=== PATIENT | female | born 1995 | race Caucasian/White ===

== ENCOUNTER 2016-09-14 12:03 | Observation (INO) | payer MEDICAID ==
[2016-09-14] MEDS ORDERED: Lactated Ringers 1,000 ML IV ONE (12:52)
[2016-09-14] MEDS ORDERED: Metoclopramide 10 MG/2 ML SDV IVPUSH ONE (12:57)
[2016-09-14 13:04] LABS: CHLORIDE,CL 101 mmol/L (101-111); SODIUM,NA 133 mmol/L (135-145)
[2016-09-14] MEDS ORDERED: Albuterol 6.7 GM Inhaler INH PRN (13:59)
[2016-09-14] MEDS ORDERED: Sodium Chloride 0.9% 1,000 ML IV SCH (14:00)
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
[2016-09-14] MEDS: Sodium Chloride 0.9% 1,000 ML IV SCH ×2 (14:38→22:33)
[2016-09-14] MEDS: methylPREDNISolone Sodium Succinate 125 MG/2 ML SDV IVPUSH SCH ×2 (14:41→22:19)
[2016-09-14] MEDS: Famotidine 20 MG/2 ML SDV IV PRN (14:44)
[2016-09-14] MEDS: Clindamycin Phosphate 900 MG in Sodium Chloride 0.9% 100 ML IV SCH ×2 (14:45→22:25)
[2016-09-14] MEDS: hydrOXYzine HCl 25 MG Tab PO PRN (17:14)
[2016-09-14] MEDS: Budesonide 0.5 MG/2 ML Neb Susp NEB SCH (17:43)
[2016-09-14] MEDS: Acetaminophen 325 MG Tab PO PRN (19:30)
[2016-09-15] MEDS: Acetaminophen 325 MG Tab PO PRN ×3 (01:40→22:44)
[2016-09-15] MEDS: hydrOXYzine HCl 25 MG Tab PO PRN ×2 (01:41→12:04)
[2016-09-15] MEDS: Famotidine 20 MG/2 ML SDV IV PRN (05:38)
[2016-09-15] MEDS: methylPREDNISolone Sodium Succinate 125 MG/2 ML SDV IVPUSH SCH ×2 (05:42→14:44)
[2016-09-15] MEDS: Clindamycin Phosphate 900 MG in Sodium Chloride 0.9% 100 ML IV SCH ×3 (05:45→22:38)
[2016-09-15 07:12] LABS: CHLORIDE,CL 105 mmol/L (101-111); SODIUM,NA 137 mmol/L (135-145)
[2016-09-15] MEDS: Sodium Chloride 0.9% 1,000 ML IV SCH ×2 (07:40→16:18)
[2016-09-15] MEDS ORDERED: Metoclopramide 10 MG Tab PO SCH (11:00)
[2016-09-15] MEDS: Budesonide 0.5 MG/2 ML Neb Susp NEB SCH ×2 (11:57→17:55)
[2016-09-15] MEDS: Morphine 2 MG/ML Syringe IVPUSH PRN ×2 (17:23→23:31)
[2016-09-15] MEDS: Pantoprazole 40 MG in Sodium Chloride 0.9% 100 ML IV SCH ×2 (17:24→22:46)
[2016-09-15] MEDS: Docusate Sodium 100 MG Cap PO PRN (17:25)
[2016-09-15 17:34] LABS: CHLORIDE,CL 106 mmol/L (101-111); SODIUM,NA 138 mmol/L (135-145)
[2016-09-15] MEDS ORDERED: Lidocaine 1% 10 ML MDV INJECT ONE (18:07)
[2016-09-15] MEDS ORDERED: Lidocaine 1% 30 ML SDV INJECT ONE (18:32)
[2016-09-16] MEDS: Sodium Chloride 0.9% 1,000 ML IV SCH (01:20)
[2016-09-16] MEDS: Morphine 2 MG/ML Syringe IVPUSH PRN ×2 (05:31→12:22)
[2016-09-16] MEDS: Pantoprazole 40 MG in Sodium Chloride 0.9% 100 ML IV SCH (05:37)
[2016-09-16] MEDS: Clindamycin Phosphate 900 MG in Sodium Chloride 0.9% 100 ML IV SCH ×2 (06:05→14:00)
[2016-09-16 07:03] LABS: CHLORIDE,CL 104 mmol/L (101-111); SODIUM,NA 134 mmol/L (135-145)
[2016-09-16] MEDS: Budesonide 0.5 MG/2 ML Neb Susp NEB SCH (09:45)
--- NOTE | 2016-09-16 10:20 | HP ---
PATIENT IDENTIFICATION: Sheryl Salinas is a 21-year-old, G2, P0-0-1-0, intrauterine 32 weeks, confirmed by 6 and 09/22 week ultrasound that presents with nausea, vomiting, and abdominal pain. HISTORY OF PRESENT ILLNESS: The patient has been complaining of at least the last week of having upper abdominal pain, described as cramping at times, seems to come on as soon as she eats, and associated with nausea and vomiting. It was waxing and waning until last night when she had some water and then has been more constant, felt in the upper abdominal area. It was severe enough to the point that she was vomiting when she was getting her packing changed today on the hospital floor by nurse. She denies any diarrhea, constipation, change in bowel or bladder habits. She denies any spotting, bleeding, leaking or contractions. She has had good movement. For further history of present illness, past medical, family history, social history, OB history, and review of systems, please see Noa Olivarez's, MS III, notes. These were done fully, and please see her notes for further details. To put this in context, she does have a history of abscesses involving the right chest wall, packing changes were done today, and discussed with nurse. No evidence of worsening infection noted today. She also has asthma and noted to have some wheezing and cough as well as meth use during her . OBJECTIVE: Her vital signs have been stable. She has not been hypertensive. She has been afebrile. For further physical exam findings, please see Noa Menjivars, MS III, notes for further details. She does have some upper abdominal pain without any rebound, rigidity, or guarding. INVESTIGATIONS: Please see Noa Menjivars, MS III, notes. CBC, CMP, UA, urine culture, and urine drug screen have been done. heart tones have been found to be reactive and reassuring. Tocometer reveals no evidence contractions. ASSESSMENT AND PLAN: 1. Intrauterine 32 weeks by a 6 and 09/22 week ultrasound. 2. Upper abdominal pain. 3. Nausea and vomiting. 4. History of abscess involving the right chest wall, packing change done today. No evidence of worsening infection. 5. History of chlamydia during the , treated and negative thereafter. 6. Asthma with minimal wheezing and cough. We will treat today. Please see orders for further details. 7. Meth use during . 8. 2, para 0-0-1-0. 9. Methicillin-resistant staphylococcus aureus growing from her culture. We will start her on clindamycin IV as the p.o. clindamycin may be irritating or cause irritation of her stomach as well. The patient understands and agrees with the above treatment plan. Also, antiemetics will be given. Please see orders for further details. [facility] /[id number]
--- NOTE | 2016-09-16 10:50 | PN ---
DATE: 09/15/2016 SUBJECTIVE: The patient is still complaining of some upper abdominal pain, worse with oral intake. She describes difficulty keeping her eggs down this morning. She states she had a bowel movement yesterday that was within normal limits. OBJECTIVE: Vital Signs: Temperature 97.8, heart rate 64, blood pressure 118/59, respiratory rate 18. Lungs: Clear to auscultation bilaterally. Heart: S1 and S2 are heard. Regular rate and rhythm. Abdomen: Obese, gravid. Beny's indeterminate. With distraction, there is no pain with palpation, but with patient concentrating on palpation of the abdomen/exam, there seems to be some pain in the upper abdominal region. Extremities: Trace pedal edema. No calf pain. LABORATORY DATA: White cell count 20.3, hemoglobin 13.5, platelets 165,000. BMP remarkable for elevated glucose at 125. ASSESSMENT: 1. Intrauterine at 32 and 1/7th weeks. 2. Upper abdominal pain with nausea and vomiting with difficulty keeping down breakfast this morning. We will try to continue with Pepcid that we have been using IV. We will switch over to a p.o. Reglan in an attempt to get her on oral antiemetics to make sure she is stable to go home. 3. Leukocytosis. I suspect this is secondary to the steroids that we have been giving her which has been used for her acute exacerbation of asthma/wheezing, which is noted be resolved today. 4. History of abscesses involving the right chest wall, packing changes. No evidence of increasing infection noted yesterday. 5. Acute exacerbation of asthma with wheezing and coughing-resolved. 6. History of meth use during . 7. 2, Para 0-0-1-0. PLAN: The patient will be followed closely. Labs tomorrow. Try to switch over to oral antiemetic and proceed from there. The patient understands and agrees with the above treatment plan. [facility] /[id number]
--- NOTE | 2016-09-16 10:56 | PN ---
DATE: 09/15/2016 SUBJECTIVE: I was called to evaluate this patient as she was complaining of pain, crying in pain, and was being somewhat uncooperative with staff. The patient relates to me that she has had ongoing abdominal pain that worsened today, and it is actually located right paraspinous region in the thoracic and lumbar area, it is worse with palpation, sometimes with movement, and severe enough that she is crying at times with it. She is unsure if she has passed any flatus. She has not had a bowel movement since she has been at the hospital. She has been treated with Reglan, Pepcid, steroids for her breathing and notes that sometimes these medicines may or may not help and she is asking for something for pain. PAST SURGICAL HISTORY: Remarkable for patient have a cholecystectomy per chart review. MEDICATIONS: Per JUL. OBJECTIVE: Vital Signs: The patient has been afebrile. Heart rate is between 60 and 80 by central exam, respiratory rate is between 16 and 20, last blood pressure 118/59, O2 sat on room air was 96% earlier this morning. Appearance: Female, appears her stated age, seems to be holding still in pain and then sometimes moving around in pain and sitting up, when she lies back, she seems to be able to do this with minimal difficulty. HEENT: Mucous membranes are moist. Lungs: Clear to auscultation bilaterally. Heart: S1 and S2, regular rate and rhythm. Abdomen: Gravid. Soft, nontender, nondistended. Bowel sounds positive. No other organomegaly, pulsatile masses, or obvious hernias. No rebound, rigidity, or guarding. With distraction, the patient's pain is resolved, when listening with the stethoscope all over her abdomen and back region. Asked where patient relates her pain, it is posterior to the posterior axillary line in the paraspinous region between the thoracic and lumbar area. Dressing was dry and intact and lifted and revealed 2 healing wounds with no underlying erythema, fluctuance, or drainage elicited. Pain is worse with palpation. Extremities: No peripheral edema. No calf pain. ASSESSMENT AND PLAN: Intrauterine at 32 weeks with now right-sided flank pain. New diagnosis, questionable prognosis. We will do labs and because of breathing is affected, we will need to consider a chest x-ray for further evaluation and treatment, and as she is requesting something for pain, we will give her something for pain. Please see orders for further details. At current time of dictation, this does not appear to be related to a surgical abdomen as her pain is paraspinous in nature. There is no anterior abdominal pain or abdominal pain with distraction today. No rebound, rigidity or guarding. In addition, her pain is worse with palpation, so I doubt internal pain. We will continue to follow clinically and closely at this time. The patient understands and agrees with the above treatment plan. [facility] /[id number]
[2016-09-16] MEDS: Acetaminophen 325 MG Tab PO PRN (10:59)
--- NOTE | 2016-09-16 11:02 | PN ---
DATE: 09/15/2016 Labs returned. White cell count 22,400 suspect related to steroid use. Hemoglobin 13.8, platelets 176,000. CMP remarkable for glucose minimally elevated at 112, total protein at 6.5, and albumin at 2.7. Urine culture reveals no growth. Chest x-ray, portable, reveals no obvious acute abnormality on the chest. There appears to be some nonspecific gas pattern underneath the right hemidiaphragm within the bowels. The patient did receive a mg of morphine and relates to the med student that pain has improved. We will continue to follow clinically and closely. [facility] /[id number]
[2016-09-16 11:33] VITALS: BP 135/95
--- NOTE | 2016-09-16 11:57 | PCM.DCSUM1 ---
Discharge Summary - Hospital Course Free Text/Narrative:: 21-year-old at 32+ weeks gestation. Was admitted 09/14/16 with right upper quadrant abdominal pain. She was given some albuterol for wheezing. No cause for her pain has been noted. She was also started on Protonix. She had an elevated white count yesterday which was thought to be due to steroids. Throughout her stay patient's exam and history do not seem to coordinate very well. She is also having dressing changes for abscess beneath her right breast. - Discharge Data Discharge Date: 09/16/16 Discharge Disposition: Home, Self-Care 01 Condition: Good - Discharge Diagnosis/Problem(s) (1) Vomiting affecting SNOMED Code(s): 85917449, 279421083 ICD Code: O21.9 - VOMITING OF , UNSPECIFIED Status: Acute Current Visit: Yes (2) Abdominal pain SNOMED Code(s): 28872065 ICD Code: R10.9 - UNSPECIFIED ABDOMINAL PAIN Status: Acute Priority: Medium Current Visit: No (3) Asthma SNOMED Code(s): 335384822 ICD Code: J45.909 - UNSPECIFIED ASTHMA, UNCOMPLICATED Status: Acute Priority: Medium Current Visit: No Qualifiers: Asthma severity: mild intermittent Qualified Code(s): J45.21 - Mild intermittent asthma with (acute) exacerbation - Patient Summary/Data Operative Procedure(s) Performed: None Complications: None Consults: None Labs Pending at D/C: None Recommended Follow-up Testing/Procedures: Right upper quadrant ultrasound Planned Operative Procedure(s) after DC: None Hospital Course: Patient reports that she still has some pain today. However, her white count has decreased significantly. She is eating and not vomiting. She has refused to get out of bed other than to go to the bathroom. - Patient Instructions Diet: Usual Diet as Tolerated ([place] diet) Activity: As Tolerated Driving: May Drive Today Showering/Bathing: May Shower Notify Provider of: Fever - Discharge Plan Prescriptions/Med Rec: Albuterol [IJD: Ventolin HFA] 2 puff INH Q4HR PRN #1 inhaler PRN Reason: Shortness Of Breath Docusate Sodium [Colace] 100 mg PO BID PRN #60 cap PRN Reason: Constipation Home Medications: Home Meds Vits #90/Iron Fum/FA [ Formula] 1 tab PO BID 08/28/16 [History] Acetaminophen 650 mg PO Q6H 09/03/16 [History] Albuterol [IJD: Ventolin HFA] 2 puff INH Q4HR PRN #1 inhaler 09/16/16 [Rx] Docusate Sodium [Colace] 100 mg PO BID PRN #60 cap 09/16/16 [Rx] - Discharge Summary/Plan Comment DC Time >30 min.: No Discharge Summary/Plan Comment: 1. Abdominal pain of uncertain etiology. Patient complains of pain; however, no pain is elicited on examination when patient is distracted by speaking with me. Will plan for outpatient right upper quadrant ultrasound for evaluation. Patient no longer requires hospitalization for management of her pain. 2. Protonix 40 mg daily prescribed. 3. Patient advised to stop clindamycin. 4. Patient started on 100 mg Colace twice daily for constipation. 5. Patient is scheduled to see Dr. Erick Gloria tomorrow in my absence. She will see me on Friday for dressing change. 6. Reasons to return sooner were discussed with the patient, and she voices her understanding. Shante Grubbs MD - General Info Date of Service: 09/16/16 Subjective Update: Patient is now hospital day #2 after being admitted for abdominal pain and vomiting in . Patient has not vomited overnight. She continues to complain of right upper quadrant abdominal pain and states that the only thing that makes this better is the morphine. She has been able to eat small amounts of regular food and is able to drink fluids normally. No fever or chills. Functional Status: Reports: tolerating diet, urinating - Review of Systems General: Reports: No Symptoms HEENT: Reports: no symptoms Pulmonary: Reports: no symptoms Cardiovascular: Reports: No Symptoms Gastrointestinal: Reports: Abdominal pain Genitourinary: Reports: no symptoms Musculoskeletal: Reports: no symptoms Skin: Reports: no symptoms Neurological: Reports: No Symptoms - Patient Data Vitals - Most Recent: Last Vital Signs Temp 36.3 C 09/16/16 11:32 Pulse 68 09/16/16 11:32 Resp 20 09/16/16 11:32 BP 135/95 H 09/16/16 11:32 Pulse Ox 99 09/16/16 11:32 Weight - Most Recent: 116.483 kg I&O - Last 24 hours: Intake & Output 09/15/16 09/16/16 09/16/16 22:59 06:59 14:59 Intake Total 2051 2 Output Total 621 599 Balance 1680 1802 Lab Results - Last 24 hrs: Laboratory Results - last 24 hr 09/15/16 09/15/16 09/15/16 Range/Units 17:05 17:05 19:15 WBC 22.4 H (5.0-10.0) 10^3/uL RBC 4.61 (4.2-5.4) 10^6/uL Hgb 13.8 (12.0-16.0) g/dL Hct 41.1 (37.0-47.0) % MCV 89.2 (80-100) fL MCH 29.9 (27.0-34.0) pg MCHC 33.6 (33.0-35.0) g/dL RDW RDW Coeff of Francisca Plt Count 176 (150-450) 10^3/uL MPV Neutrophils % (Manual) % Lymphocytes % (Manual) % Monocytes % (Manual) % Sodium 138 (135-145) mmol/L Potassium 3.8 (3.6-5.0) mmol/L Chloride 106 (101-111) mmol/L Carbon Dioxide 24.0 (21.0-31.0) mmol/L Anion Gap 11.8 BUN 6 L (7-18) mg/dL Creatinine 0.7 (0.6-1.3) mg/dL Est Cr Clr Drug Dosing 108.86 mL/min Estimated GFR (MDRD) > 60 BUN/Creatinine Ratio 8.57 Glucose 112 H (74-105) mg/dL Calcium 8.6 (8.4-10.2) mg/dl Total Bilirubin 0.3 (0.2-1.0) mg/dL AST 20 (10-42) IU/L ALT 21 (10-60) IU/L Alkaline Phosphatase 102 (42-121) IU/L Total Protein 6.5 L (6.7-8.2) g/dl Albumin 2.7 L (3.2-5.5) g/dl Globulin 3.8 Albumin/Globulin Ratio 0.71 Amylase 74 (28-100) U/L Urine Color Yellow (YELLOW) Urine Appearance Clear (CLEAR) Urine pH 6.0 (5.0-9.0) Ur Specific Doss 1.025 (1.005-1.030) Urine Protein 100 H (NEGATIVE) Urine Glucose (UA) Negative (NEGATIVE) Urine Ketones 40 H (NEGATIVE) Urine Occult Blood Negative (NEGATIVE) Urine Nitrite Negative (NEGATIVE) Urine Bilirubin Negative (NEGATIVE) Urine Urobilinogen 0.2 (0.2-1.0) mg/dL Ur Leukocyte Esterase Negative (NEGATIVE) Urine RBC 0-5 /HPF Urine WBC 0-5 (0-5/HPF) /HPF Ur Epithelial Cells Many H /HPF Urine Bacteria Moderate H (0-FEW/HPF) /HPF Urine Mucus Moderate H /LPF 09/16/16 09/16/16 Range/Units 06:15 06:15 WBC 18.6 H (5.0-10.0) 10^3/uL RBC 4.08 L (4.2-5.4) 10^6/uL Hgb 12.2 (12.0-16.0) g/dL Hct 36.9 L (37.0-47.0) % MCV 90.4 (80-100) fL MCH 29.9 (27.0-34.0) pg MCHC 33.1 (33.0-35.0) g/dL RDW Not Reportable RDW Coeff of Francisca Not Reportable Plt Count 172 (150-450) 10^3/uL MPV Not Reportable Neutrophils % (Manual) 74 % Lymphocytes % (Manual) 21 % Monocytes % (Manual) 5 % Sodium 134 L (135-145) mmol/L Potassium 3.2 L (3.6-5.0) mmol/L Chloride 104 (101-111) mmol/L Carbon Dioxide 23.0 (21.0-31.0) mmol/L Anion Gap 10.2 BUN 7 (7-18) mg/dL Creatinine 0.6 (0.6-1.3) mg/dL Est Cr Clr Drug Dosing 127.00 mL/min Estimated GFR (MDRD) > 60 BUN/Creatinine Ratio 11.66 Glucose 94 (74-105) mg/dL Calcium 8.0 L (8.4-10.2) mg/dl Total Bilirubin 0.4 (0.2-1.0) mg/dL AST 18 (10-42) IU/L ALT 19 (10-60) IU/L Alkaline Phosphatase 85 (42-121) IU/L Total Protein 5.7 L (6.7-8.2) g/dl Albumin 2.3 L (3.2-5.5) g/dl Globulin 3.4 Albumin/Globulin Ratio 0.68 Amylase (28-100) U/L Urine Color (YELLOW) Urine Appearance (CLEAR) Urine pH (5.0-9.0) Ur Specific Doss (1.005-1.030) Urine Protein (NEGATIVE) Urine Glucose (UA) (NEGATIVE) Urine Ketones (NEGATIVE) Urine Occult Blood (NEGATIVE) Urine Nitrite (NEGATIVE) Urine Bilirubin (NEGATIVE) Urine Urobilinogen (0.2-1.0) mg/dL Ur Leukocyte Esterase (NEGATIVE) Urine RBC /HPF Urine WBC (0-5/HPF) /HPF Ur Epithelial Cells /HPF Urine Bacteria (0-FEW/HPF) /HPF Urine Mucus /LPF GENOVEVA Results - Last 24 hrs: Microbiology 09/14/16 14:15 Urine Culture - Final Urine, Clean Catch NO GROWTH AFTER 2 DAYS Med Orders - Current: Current Medications Acetaminophen (Tylenol) 650 mg PO Q6H PRN PRN Reason: mild pain and fever Last Admin: 09/16/16 10:59 Dose: 650 mg Albuterol (Proventil Hfa) 0 gm INH Q4H PRN PRN Reason: Shortness of Breath Budesonide (Pulmicort) 0.5 mg NEB BIDRT YEN Last Admin: 09/16/16 09:45 Dose: 0.5 mg Docusate Sodium (Colace) 100 mg PO BID PRN PRN Reason: constipation Last Admin: 09/15/16 17:25 Dose: 100 mg Hydroxyzine HCl (Atarax) 25 mg PO Q6H PRN PRN Reason: Nausea Last Admin: 09/15/16 12:04 Dose: 25 mg Clindamycin Phosphate 900 mg/ (Sodium Chloride) 106 mls @ 200 mls/hr IV Q8H YEN Last Admin: 09/16/16 06:05 Dose: 200 mls/hr Sodium Chloride (Normal Saline) 1,000 mls @ 125 mls/hr IV ASDIRECTED YEN Last Admin: 09/16/16 01:20 Dose: 125 mls/hr Sodium Chloride (Normal Saline) 1,000 mls @ 500 mls/hr IV .BOLUS YEN Pantoprazole Sodium 40 mg/ (Sodium Chloride) 100 mls @ 20 mls/hr IV .CONTINUOS [facility] Last Admin: 09/16/16 05:37 Dose: 20 mls/hr Lidocaine HCl (Xylocaine-Mpf 1%) 5 ml .XX ONETIME ONE Stop: 09/16/16 12:01 Morphine Sulfate (Morphine) 1 mg IVPUSH Q6HR PRN PRN Reason: Pain Last Admin: 09/16/16 05:31 Dose: 1 mg Discontinued Medications Famotidine (Pepcid) 20 mg IV Q12H PRN PRN Reason: Heartburn Last Admin: 09/15/16 05:38 Dose: 20 mg Lactated Ringer's (Ringers, Lactated) 1,000 mls @ 999 mls/hr IV .BOLUS ONE Stop: 09/14/16 13:52 Last Admin: 09/14/16 13:12 Dose: 999 mls/hr Lidocaine HCl (Xylocaine 1%) 5 ml INJECT ONETIME ONE Stop: 09/15/16 18:08 Last Admin: 09/15/16 19:12 Dose: Not Given Lidocaine HCl (Xylocaine-Mpf 1%) 30 ml INJECT ONETIME ONE Stop: 09/15/16 18:33 Last Admin: 09/15/16 19:12 Dose: 30 ml Methylprednisolone Sodium Succinate (Solu-Medrol) 80 mg IVPUSH Q8H [facility] Last Admin: 09/15/16 14:44 Dose: 80 mg Metoclopramide HCl (Reglan) 5 mg IVPUSH ONETIME ONE Stop: 09/14/16 12:58 Last Admin: 09/14/16 13:35 Dose: 5 mg Metoclopramide HCl (Reglan) 10 mg PO TIDAC [facility] Last Admin: 09/15/16 12:04 Dose: 10 mg - Exam General: Reports: alert, oriented Lungs: Reports: Clear to auscultation, Normal respiratory effort. Denies: Wheezing Cardiovascular: Reports: Regular Rate, Regular Rhythm, No Murmurs Abdomen: Reports: bowel sounds present, soft, no tenderness (Patient distracted during examination and did not complain of pain when I applied pressure during abdominal auscultation). Denies: abnormal bowel sounds Skin: Reports: warm, dry, intact *Q Meaningful Use (DIS) - VTE *Q VTE Criteria *Q: - Stroke *Q Stroke Criteria *Q: - AMI *Q AMI Criteria *Q:
[2016-09-16] MEDS ORDERED: Lidocaine 1% 30 ML SDV ONE (12:00)
--- NOTE | 2016-09-16 12:02 | OBOUT ---
DATE: 09/15/2016 DATE AND TIME OF NST: Date: 09/15/2016. Time: 05:25 to 05:45. REASON FOR NST: 1. Intrauterine at 32 and 1/7th weeks. 2. Upper abdominal pain with nausea and vomiting. Leukocytosis. 3. History of abscess and cellulitis with packing changes. 4. Asthma with wheezing and cough. 5. Meth use during . 6. G2, P0-0-1-0. NST INTERPRETATION: During this time period, heart tone baseline is approximately 145 to 150, and there are at least two 15 x 15 beat per minute accelerations, making this strip reactive. It is also noted to be reassuring. Tocometer reveals no evidence contraction. ASSESSMENT: 1. Non-stress test-reactive and reassuring. 2. Tocometer without contractions. PLAN: Please see other notes from hospital. [facility] /[id number]
--- NOTE | 2016-09-16 12:02 | OBOUT ---
DATE: 09/14/2016 DATE AND TIME OF NST: Date: 09/14/2016. Time: 1250 hours to 1305 hours. REASON FOR NST: 1. Intrauterine at 32 weeks. 2. Upper abdominal pain. 3. Nausea and vomiting. 4. History of abscess involving the right chest wall, packing changes done today. 5. History of chlamydia, treated and negative thereafter. 6. Asthma with mild wheezing and cough today. 7. History of meth use during . 8. G2, P0-0-1-0. NST INTERPRETATION: During this time period, heart tone baseline is approximately 145 to 150, and there are at least two 15 x 15 beat per minute accelerations, making this strip reactive. It is also noted to be reassuring. Tocometer reveals no evidence contraction. ASSESSMENT: 1. Non-stress test-reactive and reassuring. 2. Tocometer without contractions. PLAN: Please see other OB outpatient note for further details. [facility] /[id number]
[2016-09-16] MEDS: Docusate Sodium 100 MG Cap PO PRN (12:20)
== END 2016-09-16 14:35 | disposition home or self-care (01) ==
LOC: DL.OBCHECK 12:03 → DL.MS 13:48
PROVIDERS: ADMIT Family Medicine; ATTEND Family Medicine
DX: O21.2 Late vomiting of pregnancy (principal); O26.893 Other specified pregnancy related conditions, third trimester; J45.21 Mild intermittent asthma with (acute) exacerbation; O99.52 Diseases of the respiratory system complicating childbirth; Z3A.01 Less than 8 weeks gestation of pregnancy; Z37.9 Outcome of delivery, unspecified; Z79.899 Other long term (current) drug therapy; Z88.8 Allergy status to other drugs, medicaments and biological substances; O98.813 Other maternal infectious and parasitic diseases complicating pregnancy, third trimester; Z90.49 Acquired absence of other specified parts of digestive tract; Z98.890 Other specified postprocedural states; A49.02 Methicillin resistant Staphylococcus aureus infection, unspecified site; F17.210 Nicotine dependence, cigarettes, uncomplicated; O99.343 Other mental disorders complicating pregnancy, third trimester; F41.8 Other specified anxiety disorders
CPT/HCPCS: 36415; 59025; 71010; 80048; 80053; 80305; 81001; 82150; 85025; 85027; 87086; 94640; 96361; 96365; 96366; 96375; 96376; A9270; C9113; G0378; J2270; J2765; J2930; J7030; J7050; J7120; 96360; 96372; S0028; S0077

== ENCOUNTER 2017-06-05 17:11 | Emergency (ER) | payer MEDICAID ==
[2017-06-05 17:28] VITALS: BP 109/80
[2017-06-05] MEDS ORDERED: Sodium Chloride 0.9% 10 ML Syringe FLUSH PRN (18:11)
--- NOTE | 2017-06-05 18:22 | EDM.PDOC ---
ED HPI GENERAL MEDICAL PROBLEM - General Chief Complaint: Gastrointestinal Problem Stated Complaint: ABD PAINS,DIZZY/LIGHTHEADED,BLACKOUT,YELLOW FACE, Time Seen by Provider: 06/05/17 18:01 Source of Information: Reports: Patient, RN, RN Notes Reviewed History Limitations: Reports: No Limitations - History of Present Illness INITIAL COMMENTS - FREE TEXT/NARRATIVE: Patient presents with abdominal pain of 3-4 days duration. States she was called by Dr. Grubbs's nurse and told she has kidney problems.She has been on antibiotics for 1 week for vaginal bacterial infection. She has not eaten today. No vomiting. Ate last night and vomited. She is very sleepy.States she cannot pee.She has chills, diarrhea at times, nausea and vomiting, lightheadedness,dizziness, falls in shower,unsteady and blacking out frequently. She has no fevers. Living at [facility] at this time. Duration: Getting Worse Location: Reports: Abdomen Quality: Reports: Ache Severity: Moderate Improves with: Reports: None Worsens with: Reports: None Associated Symptoms: Reports: No Other Symptoms Abdomen Pain Score (Numeric/FACES): 9 - Related Data Allergies Allergy/AdvReac Type Severity Reaction Status Date / Time hydrocodone [From [place]] Allergy Intermediate Rash Verified 10/05/16 18:31 Home Meds: Home Meds Acetaminophen 650 mg PO Q6H PRN 09/03/16 [History] Albuterol [IJD: Ventolin HFA] 2 puff INH Q4HR PRN #1 inhaler 09/16/16 [Rx] ClonazePAM [KlonoPIN] 06/05/17 [History] cloNIDine [Catapres-TTS 1] 06/05/17 [History] Past Medical History Cardiovascular History: Reports: None Respiratory History: Reports: Asthma Gastrointestinal History: Reports: Cholelithiasis, GERD Genitourinary History: Reports: UTI, Recurrent, Other (See Below) 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 BV - Past Surgical History HEENT Surgical History: Reports: Adenoidectomy, Tonsillectomy Respiratory Surgical History: Reports: None GI Surgical History: Reports: Cholecystectomy Female Surgical History: Reports: Other (See Below) Neurological Surgical History: Reports: None Musculoskeletal Surgical History: Reports: Other (See Below) Other Musculoskeletal Surgeries/Procedures:: Right knee surgery, left knee surgery x2 Social & Family History - Family History Family Medical History: Noncontributory HEENT: Reports: None Cardiac: Reports: None Respiratory: Reports: Asthma GI: Reports: None : Reports: None OBGYN: Reports: None Musculoskeletal: Reports: None Neurological: Reports: CVA Psychiatric: Reports: None Endocrine/Metabolic: Reports: Diabetes, type II, Hypothyroidism Hematologic: Reports: None Immunologic: Reports: None Dermatologic: Reports: Eczema, Psoriasis Oncologic: Reports: Other (See Below) Other Oncologic Family History: Pt unsure - Tobacco Use Smoking Status *Q: Current Every Day Smoker Years of Tobacco use: 6 Packs/Tins Daily: 0.5 Used Tobacco, but Quit: Yes Month Tobacco Last Used: 08/2016 Second Hand Smoke Exposure: No - Caffeine Use Caffeine Use: Reports: None Other Caffeine Use: occasional use - Recreational Drug Use Recreational Drug Use: Yes Drug Use in Last 12 Months: Yes Recreational Drug Type: Reports: Methamphetamine Other Recreational Drug Type: Hx of meth use- last used 02/2017 Recreational Drug Use Frequency: Not Used In Over 4 Months Recreational Drug Last Use: 2015 - Living Situation & Occupation Living situation: Reports: Single Occupation: Unemployed ED ROS GENERAL - Review of Systems Review Of Systems: ROS reveals no pertinent complaints other than HPI. ED EXAM, GI/ABD - Physical Exam Exam: See Below Exam Limited By: No Limitations General Appearance: Alert, WD/WN, No Apparent Distress Eyes: Bilateral: Normal Appearance Ears: Normal External Exam, Normal Canal, Hearing Grossly Normal, Normal TMs Nose: Normal Inspection, Normal Mucosa, No Blood Throat/Mouth: Normal Inspection, Normal Lips, Normal Teeth, Normal Gums, Normal Oropharynx, Normal Voice, No Airway Compromise Head: Atraumatic, Normocephalic Neck: Normal Inspection, Supple, Non-Tender, Full Range of Motion Respiratory/Chest: Lungs Clear Cardiovascular: Normal Peripheral Pulses, Regular Rate, Rhythm, No Edema, No Gallop, No JVD, No Murmur, No Rub GI/Abdominal Exam: Other (tender in all 4 quadrants. ) (Female) Exam: Deferred Rectal (Female) Exam: Deferred Back Exam: Other (bilateral CVA tenderness.) Extremities: Normal Inspection, Normal Range of Motion, Non-Tender, Normal Capillary Refill, No Pedal Edema Neurological: Alert, Oriented, CN II-XII Intact, Normal Cognition, Normal Gait, Normal Reflexes, No Motor/Sensory Deficits Psychiatric: Normal Affect, Normal Mood Skin Exam: Other (mildjaundice) Lymphatic: No Adenopathy Course - Vital Signs Last Recorded V/S: Last Vital Signs Temp 97.9 F 06/05/17 17:23 Pulse 73 06/05/17 17:23 Resp 16 06/05/17 17:23 BP 109/80 06/05/17 17:23 Pulse Ox 100 06/05/17 17:23 - Orders/Labs/Meds Orders: Active Orders 24 hr Category Date Time Status Peripheral IV Care [RC] . DIRECTED Care 06/05/17 18:11 Active Ciprofloxacin [Ciprofloxacin HCl] Med 06/05/17 20:15 Once 500 mg PO ONETIME ONE Sodium Chloride 0.9% [Saline Flush] Med 06/05/17 18:11 Active 10 ml FLUSH ASDIRECTED PRN Peripheral IV Insertion Adult [OM.PC] Stat Oth 06/05/17 18:10 Ordered Medication Orders Sodium Chloride (Saline Flush) 10 ml FLUSH ASDIRECTED PRN PRN Reason: Keep Vein Open Labs: Laboratory Tests 06/05/17 06/05/17 06/05/17 Range/Units 18:00 18:00 18:00 WBC (5.0-10.0) 10^3/uL RBC (4.2-5.4) 10^6/uL Hgb (12.0-16.0) g/dL Hct (37.0-47.0) % MCV (80-100) fL MCH (27.0-34.0) pg MCHC (33.0-35.0) g/dL Plt Count (150-450) 10^3/uL Neut % (Auto) (42.2-75.2) % Lymph % (Auto) (20.5-50.1) % [place] % (Auto) (2-8) % Eos % (Auto) (1.0-3.0) % Baso % (Auto) (0.0-1.0) % Sodium (135-145) mmol/L Potassium (3.6-5.0) mmol/L Chloride (101-111) mmol/L Carbon Dioxide (21.0-31.0) mmol/L Anion Gap BUN (7-18) mg/dL Creatinine (0.6-1.3) mg/dL Est Cr Clr Drug Dosing mL/min Estimated GFR (MDRD) BUN/Creatinine Ratio Glucose (74-105) mg/dL Calcium (8.4-10.2) mg/dl Magnesium (1.8-2.5) mg/dL Total Bilirubin (0.2-1.0) mg/dL AST (10-42) IU/L ALT (10-60) IU/L Alkaline Phosphatase (42-121) IU/L Total Protein (6.7-8.2) g/dl Albumin (3.2-5.5) g/dl Globulin Albumin/Globulin Ratio Amylase (28-100) U/L Lipase (22-51) U/L Urine Color Dark yellow (YELLOW) Urine Appearance Clear (CLEAR) Urine pH 5.5 (5.0-9.0) Ur Specific [place] 1.025 (1.005-1.030) Urine Protein Negative (NEGATIVE) Urine Glucose (UA) Negative (NEGATIVE) Urine Ketones Negative (NEGATIVE) Urine Occult Blood Trace-lysed H (NEGATIVE) Urine Nitrite Negative (NEGATIVE) Urine Bilirubin Small H (NEGATIVE) Urine Urobilinogen 0.2 (0.2-1.0) mg/dL Ur Leukocyte Esterase Trace H (NEGATIVE) Urine RBC 0-5 /HPF Urine WBC 5-10 H (0-5/HPF) /HPF Ur Epithelial Cells Many H /HPF Urine Bacteria Few (0-FEW/HPF) /HPF Hyaline Casts Moderate H /LPF Urine Mucus Many H /LPF Urine HCG, Qual Negative Urine Opiates Screen Negative (NEGATIVE) Ur Oxycodone Screen Negative (NEGATIVE) Urine Methadone Screen Negative (NEGATIVE) Ur Barbiturates Screen Negative (NEGATIVE) U Tricyclic Antidepress Negative (NEGATIVE) Ur Phencyclidine Scrn Negative (NEGATIVE) Ur Amphetamine Screen Negative (NEGATIVE) U Methamphetamines Scrn Negative (NEGATIVE) Urine MDMA Screen Negative (NEGATIVE) U Benzodiazepines Scrn Negative (NEGATIVE) Urine Cocaine Screen Negative (NEGATIVE) U Marijuana (THC) Screen Negative (NEGATIVE) Ethyl Alcohol mg/dL 06/05/17 06/05/17 Range/Units 18:29 18:29 WBC 6.1 (5.0-10.0) 10^3/uL RBC 5.30 (4.2-5.4) 10^6/uL Hgb 15.1 D (12.0-16.0) g/dL Hct 44.0 (37.0-47.0) % MCV 83.0 D (80-100) fL MCH 28.5 (27.0-34.0) pg MCHC 34.3 (33.0-35.0) g/dL Plt Count 166 (150-450) 10^3/uL Neut % (Auto) 33.9 L (42.2-75.2) % Lymph % (Auto) 53.8 H (20.5-50.1) % [place] % (Auto) 8.2 H (2-8) % Eos % (Auto) 3.9 H (1.0-3.0) % Baso % (Auto) 0.2 (0.0-1.0) % Sodium 135 (135-145) mmol/L Potassium 4.1 (3.6-5.0) mmol/L Chloride 102 (101-111) mmol/L Carbon Dioxide 22.0 (21.0-31.0) mmol/L Anion Gap 15.1 BUN 20 H (7-18) mg/dL Creatinine 1.1 (0.6-1.3) mg/dL Est Cr Clr Drug Dosing 69.27 mL/min Estimated GFR (MDRD) > 60 BUN/Creatinine Ratio 18.18 Glucose 86 (74-105) mg/dL Calcium 9.6 D (8.4-10.2) mg/dl Magnesium 1.7 L (1.8-2.5) mg/dL Total Bilirubin 0.7 (0.2-1.0) mg/dL AST 22 (10-42) IU/L ALT 17 (10-60) IU/L Alkaline Phosphatase 68 (42-121) IU/L Total Protein 6.7 (6.7-8.2) g/dl Albumin 4.3 (3.2-5.5) g/dl Globulin 2.4 Albumin/Globulin Ratio 1.79 Amylase 49 (28-100) U/L Lipase 41 (22-51) U/L Urine Color (YELLOW) Urine Appearance (CLEAR) Urine pH (5.0-9.0) Ur Specific [place] (1.005-1.030) Urine Protein (NEGATIVE) Urine Glucose (UA) (NEGATIVE) Urine Ketones (NEGATIVE) Urine Occult Blood (NEGATIVE) Urine Nitrite (NEGATIVE) Urine Bilirubin (NEGATIVE) Urine Urobilinogen (0.2-1.0) mg/dL Ur Leukocyte Esterase (NEGATIVE) Urine RBC /HPF Urine WBC (0-5/HPF) /HPF Ur Epithelial Cells /HPF Urine Bacteria (0-FEW/HPF) /HPF Hyaline Casts /LPF Urine Mucus /LPF Urine HCG, Qual Urine Opiates Screen (NEGATIVE) Ur Oxycodone Screen (NEGATIVE) Urine Methadone Screen (NEGATIVE) Ur Barbiturates Screen (NEGATIVE) U Tricyclic Antidepress (NEGATIVE) Ur Phencyclidine Scrn (NEGATIVE) Ur Amphetamine Screen (NEGATIVE) U Methamphetamines Scrn (NEGATIVE) Urine MDMA Screen (NEGATIVE) U Benzodiazepines Scrn (NEGATIVE) Urine Cocaine Screen (NEGATIVE) U Marijuana (THC) Screen (NEGATIVE) Ethyl Alcohol < 5 mg/dL Meds: Medications Generic Name Dose Route Start Last Admin Trade Name Freq PRN Reason Stop Dose Admin Sodium Chloride 10 ml 06/05/17 18:11 Saline Flush FLUSH ASDIRECTED PRN Keep Vein Open Discontinued Medications Generic Name Dose Route Start Last Admin Trade Name Freq PRN Reason Stop Dose Admin Sodium Chloride 1,000 mls @ 999 mls/hr 06/05/17 19:13 06/05/17 19:25 Normal Saline IV 06/05/17 20:13 999 mls/hr .BOLUS ONE Administration Departure - Departure Time of Disposition: 20:16 Disposition: Home, Self-Care 01 Condition: Fair Clinical Impression: UTI, Urinary tract infectious disease - Discharge Information Instructions: Urinary Tract Infection, Adult, [id number] Forms: ED Department Discharge Additional Instructions: RX: Cipro, finish course of antibiotics Drink plenty of fluids Follow up with your primary care facility on Friday - My Orders Last 24 Hours: My Active Orders 06/05/17 18:10 Peripheral IV Insertion Adult [OM.PC] Stat 06/05/17 18:11 Peripheral IV Care [RC] . DIRECTED Sodium Chloride 0.9% [Saline Flush] 10 ml FLUSH ASDIRECTED PRN 06/05/17 20:15 Ciprofloxacin [Ciprofloxacin HCl] 500 mg PO ONETIME ONE - Assessment/Plan Last 24 Hours: My Active Orders 06/05/17 18:10 Peripheral IV Insertion Adult [OM.PC] Stat 06/05/17 18:11 Peripheral IV Care [RC] . DIRECTED Sodium Chloride 0.9% [Saline Flush] 10 ml FLUSH ASDIRECTED PRN 06/05/17 20:15 Ciprofloxacin [Ciprofloxacin HCl] 500 mg PO ONETIME ONE
[2017-06-05 19:00] LABS: CHLORIDE,CL 102 mmol/L (101-111); SODIUM,NA 135 mmol/L (135-145)
[2017-06-05] MEDS ORDERED: Sodium Chloride 0.9% 1,000 ML IV ONE (19:13)
[2017-06-05] MEDS ORDERED: Ciprofloxacin 500 MG Tab PO ONE (20:15)
== END 2017-06-05 20:24 | disposition home or self-care (01) ==
LOC: DL.ED 17:11
DX: N39.0 Urinary tract infection, site not specified (principal); J45.909 Unspecified asthma, uncomplicated; F32.9 Major depressive disorder, single episode, unspecified; F17.210 Nicotine dependence, cigarettes, uncomplicated; Z88.5 Allergy status to narcotic agent
CPT/HCPCS: 36415; 80053; 80305; 81001; 81025; 82150; 83690; 83735; 85025; 87086; 96360; 99283; A9270; G0480; J7030

== ENCOUNTER 2017-06-27 14:24 | Emergency (ER) | payer MEDICAID ==
[2017-06-27 14:32] VITALS: BP 114/93
--- NOTE | 2017-06-27 14:42 | EDM.PDOC ---
ED HPI GENERAL MEDICAL PROBLEM - General Chief Complaint: Gastrointestinal Problem Stated Complaint: [phone] BUTT IS BLEEDING FOR 2 DAYS Time Seen by Provider: 06/27/17 14:42 Source of Information: Reports: Patient, RN, RN Notes Reviewed History Limitations: Reports: No Limitations - History of Present Illness INITIAL COMMENTS - FREE TEXT/NARRATIVE: Patient complains of 3-4 days of anal pain with bright blood on toilet tissue. Denies injury. Today patient woke with nausea and vomiting x2. Denies fever or chills. Duration: Getting Worse Quality: Reports: Ache Severity: Moderate Improves with: Reports: None Worsens with: Reports: None Associated Symptoms: Reports: No Other Symptoms Rectal Pain Score (Numeric/FACES): 8 - Related Data Allergies Allergy/AdvReac Type Severity Reaction Status Date / Time hydrocodone [From [place]] Allergy Intermediate Rash Verified 06/27/17 14:29 Home Meds: Home Meds Acetaminophen 650 mg PO Q6H PRN 09/03/16 [History] Albuterol [IJD: Ventolin HFA] 2 puff INH Q4HR PRN #1 inhaler 09/16/16 [Rx] ClonazePAM [KlonoPIN] 2 mg PO DAILY 06/05/17 [History] cloNIDine [Catapres-TTS 1] 0.1 mg PO BID 06/05/17 [History] Past Medical History Cardiovascular History: Reports: None Respiratory History: Reports: Asthma Gastrointestinal History: Reports: Cholelithiasis, GERD Genitourinary History: Reports: UTI, Recurrent, Other (See Below) 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 BV - Past Surgical History HEENT Surgical History: Reports: Adenoidectomy, Tonsillectomy Respiratory Surgical History: Reports: None GI Surgical History: Reports: Cholecystectomy Female Surgical History: Reports: Other (See Below) Neurological Surgical History: Reports: None Musculoskeletal Surgical History: Reports: Other (See Below) Other Musculoskeletal Surgeries/Procedures:: Right knee surgery, left knee surgery x2 Social & Family History - Family History Family Medical History: Noncontributory HEENT: Reports: None Cardiac: Reports: None Respiratory: Reports: Asthma GI: Reports: None : Reports: None OBGYN: Reports: None Musculoskeletal: Reports: None Neurological: Reports: CVA Psychiatric: Reports: None Endocrine/Metabolic: Reports: Diabetes, type II, Hypothyroidism Hematologic: Reports: None Immunologic: Reports: None Dermatologic: Reports: Eczema, Psoriasis Oncologic: Reports: Other (See Below) Other Oncologic Family History: Pt unsure - Tobacco Use Smoking Status *Q: Current Every Day Smoker Years of Tobacco use: 6 Packs/Tins Daily: 0.5 Used Tobacco, but Quit: Yes Month Tobacco Last Used: 08/2016 Second Hand Smoke Exposure: No - Caffeine Use Caffeine Use: Reports: None Other Caffeine Use: occasional use - Recreational Drug Use Recreational Drug Use: Yes Drug Use in Last 12 Months: Yes Recreational Drug Type: Reports: Methamphetamine Other Recreational Drug Type: Hx of meth use- last used 02/2017 Recreational Drug Use Frequency: Not Used In Over 4 Months Recreational Drug Last Use: 2015 - Living Situation & Occupation Living situation: Reports: Single Occupation: Unemployed ED ROS GENERAL - Review of Systems Review Of Systems: ROS reveals no pertinent complaints other than HPI. ED EXAM, GI/ABD - Physical Exam Exam: See Below Exam Limited By: No Limitations General Appearance: Obese Head: Atraumatic, Normocephalic Neck: Normal Inspection, Supple, Non-Tender, Full Range of Motion Respiratory/Chest: No Respiratory Distress Cardiovascular: Normal Peripheral Pulses, Regular Rate, Rhythm, No Edema, No Gallop, No JVD, No Murmur, No Rub GI/Abdominal Exam: Other (mild generalized tenderness. ) Rectal (Female) Exam: Other (painful anal fissure at 6 o'clock position, no visible hemorrhoid. ) Back Exam: Normal Inspection, Full Range of Motion, NT Extremities: Normal Inspection, Normal Range of Motion, Non-Tender, Normal Capillary Refill, No Pedal Edema Neurological: Alert, Oriented, CN II-XII Intact, Normal Cognition, Normal Gait, Normal Reflexes, No Motor/Sensory Deficits Skin Exam: Warm, Dry, Intact, Normal Color, No Rash Course - Vital Signs Last Recorded V/S: Last Vital Signs Temp 37.1 C 06/27/17 14:31 Pulse 95 06/27/17 14:31 Resp 18 06/27/17 14:31 BP 114/93 H 06/27/17 14:31 Pulse Ox 100 06/27/17 14:31 - Orders/Labs/Meds Labs: Laboratory Tests 06/27/17 Range/Units 15:03 WBC 6.2 (5.0-10.0) 10^3/uL RBC 4.81 (4.2-5.4) 10^6/uL Hgb 13.7 (12.0-16.0) g/dL Hct 40.9 (37.0-47.0) % MCV 85.0 (80-100) fL MCH 28.5 (27.0-34.0) pg MCHC 33.5 (33.0-35.0) g/dL Plt Count 195 (150-450) 10^3/uL Neut % (Auto) 37.3 L (42.2-75.2) % Lymph % (Auto) 51.0 H (20.5-50.1) % [place] % (Auto) 7.7 (2-8) % Eos % (Auto) 3.7 H (1.0-3.0) % Baso % (Auto) 0.3 (0.0-1.0) % Meds: Medications Discontinued Medications Generic Name Dose Route Start Last Admin Trade Name Freq PRN Reason Stop Dose Admin Lidocaine HCl 10 ml 06/27/17 15:18 06/27/17 15:28 Xylocaine 2% Jelly MUCMEM 06/27/17 15:19 10 ml ONETIME ONE Administration Departure - Departure Time of Disposition: 15:50 Disposition: Home, Self-Care 01 Condition: Good Clinical Impression: Anal fissure, Vomiting - Discharge Information Instructions: Anal Fissure, Adult, [id number], Nausea and Vomiting, Adult, [id number] Referrals: Shante Grubbs MD [Primary Care Provider] - Forms: ED Department Discharge Additional Instructions: Rx: Lidocaine 2% cream. Use Tucks Pads and/or Tucks Wipes, follow directions on package. Use Metamucil one or twice every day until anal pain has resolved. High fiber diet. Follow up in clinic in 1 week if not improved.
[2017-06-27] MEDS ORDERED: Lidocaine 2% Jelly 10 ML Urojet MUCMEM ONE (15:18)
== END 2017-06-27 16:04 | disposition home or self-care (01) ==
LOC: DL.ED 14:24
DX: K60.2 Anal fissure, unspecified (principal); R11.10 Vomiting, unspecified; J45.909 Unspecified asthma, uncomplicated; F17.210 Nicotine dependence, cigarettes, uncomplicated; Z88.5 Allergy status to narcotic agent; Z79.899 Other long term (current) drug therapy
CPT/HCPCS: 36415; 85025; 99284

== ENCOUNTER 2017-07-26 17:50 | Emergency (ER) | payer MEDICAID ==
[2017-07-26 19:31] LABS: CHLORIDE,CL 104 mmol/L (101-111); SODIUM,NA 137 mmol/L (135-145)
[2017-07-26] MEDS ORDERED: Sodium Chloride 0.9% 1,000 ML IV ONE (20:42)
[2017-07-26] MEDS ORDERED: Ondansetron 4 MG/2 ML SDV IV ONE (20:42)
[2017-07-26] MEDS ORDERED: Famotidine 20 MG/2 ML SDV IVPUSH ONE (20:42)
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
[2017-07-26] MEDS ORDERED: Iopamidol 612 MG/ML 75 ML Bottle IVPUSH ONE (21:29)
[2017-07-26] MEDS ORDERED: Morphine 2 MG/ML Syringe IVPUSH ONE (21:31)
[2017-07-26 23:26] VITALS: BP 117/76
== END 2017-07-26 23:25 | disposition home or self-care (01) ==
LOC: DL.ED 17:50
DX: K59.01 Slow transit constipation (principal); J45.909 Unspecified asthma, uncomplicated; F17.210 Nicotine dependence, cigarettes, uncomplicated; K21.9 Gastro-esophageal reflux disease without esophagitis; F32.9 Major depressive disorder, single episode, unspecified; Z90.49 Acquired absence of other specified parts of digestive tract; Z79.899 Other long term (current) drug therapy; Z88.5 Allergy status to narcotic agent
CPT/HCPCS: 36415; 74177; 80053; 80305; 81001; 82150; 83690; 84703; 85025; 96361; 96374; 96375; 99284; J2270; J2405; J7030; Q9967; S0028

== ENCOUNTER 2017-07-29 17:30 | Emergency (ER) | payer MEDICAID ==
--- NOTE | 2017-07-29 17:48 | EDM.PDOC ---
<Clint Chan M - Last Filed: 07/29/17 18:36> ED HPI GENERAL MEDICAL PROBLEM - General Chief Complaint: Gastrointestinal Problem Stated Complaint: [id number] CONSTIPATION- LOTS OF PAIN Time Seen by Provider: 07/29/17 17:45 Source of Information: Reports: Patient, RN, RN Notes Reviewed History Limitations: Reports: No Limitations - History of Present Illness INITIAL COMMENTS - FREE TEXT/NARRATIVE: Sheryl is a 21 yo F who presents to the ED due to complaints of constipation. She reports that her last BM was approximately a week ago. She has tried stool softeners, cranberry juice, and a suppository without results. She reports nausea and vomiting. Reports that "since it's not coming out the top" Relates that she has low grade fevers and chills at home. Denies chest pain, cough, shortness of breath, or cold sx. Does relates that she has been having dysuria for the last week. Denies hematuria or flank pain. Onset: Gradual Duration: Week(s): Location: Reports: Abdomen Quality: Reports: Dull Severity: Moderate Improves with: Reports: None Worsens with: Reports: Movement Associated Symptoms: Reports: Fever/Chills, Nausea/Vomiting Abdomen Pain Score (Numeric/FACES): 8 - Related Data Allergies Allergy/AdvReac Type Severity Reaction Status Date / Time hydrocodone [From [place]] Allergy Intermediate Rash Verified 07/29/17 17:36 Home Meds: Home Meds Acetaminophen 650 mg PO Q6H PRN 09/03/16 [History] Albuterol [IJD: Ventolin HFA] 2 puff INH Q4HR PRN #1 inhaler 09/16/16 [Rx] ClonazePAM [KlonoPIN] 20 mg PO DAILY 06/05/17 [History] cloNIDine [Catapres-TTS 1] 0.1 mg PO BID 06/05/17 [History] Lidocaine 2% [Xylocaine 2% Jelly] 1 applic TOP Q4HR PRN 07/29/17 [History] Past Medical History Cardiovascular History: Reports: None Respiratory History: Reports: Asthma Gastrointestinal History: Reports: Cholelithiasis, GERD Genitourinary History: Reports: UTI, 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 BV - Past Surgical History HEENT Surgical History: Reports: Adenoidectomy, Tonsillectomy Respiratory Surgical History: Reports: None GI Surgical History: Reports: Cholecystectomy Other Female Surgeries/Procedures: 07/26/2017 LMP unknown Neurological Surgical History: Reports: None Musculoskeletal Surgical History: Reports: Other (See Below) Other Musculoskeletal Surgeries/Procedures:: Right knee surgery, left knee surgery x2 Social & Family History - Family History Family Medical History: Noncontributory HEENT: Reports: None Cardiac: Reports: None Respiratory: Reports: Asthma GI: Reports: None : Reports: None OBGYN: Reports: None Musculoskeletal: Reports: None Neurological: Reports: CVA Psychiatric: Reports: None Endocrine/Metabolic: Reports: Diabetes, type II, Hypothyroidism Hematologic: Reports: None Immunologic: Reports: None Dermatologic: Reports: Eczema, Psoriasis Oncologic: Reports: Other (See Below) Other Oncologic Family History: Pt unsure - Tobacco Use Smoking Status *Q: Current Every Day Smoker Years of Tobacco use: 6 Packs/Tins Daily: 0.5 Used Tobacco, but Quit: Yes Month/Year Tobacco Last Used: 08/2016 Second Hand Smoke Exposure: No - Caffeine Use Caffeine Use: Reports: None Other Caffeine Use: occasional use - Recreational Drug Use Recreational Drug Use: Yes Drug Use in Last 12 Months: Yes Recreational Drug Type: Reports: Methamphetamine Other Recreational Drug Type: Hx of meth use- last used 02/2017 Recreational Drug Use Frequency: Not Used In Over 4 Months Recreational Drug Last Use: 2015 - Living Situation & Occupation Living situation: Reports: Single Occupation: Unemployed ED ROS GENERAL - Review of Systems Review Of Systems: ROS reveals no pertinent complaints other than HPI. ED EXAM, GI/ABD - Physical Exam Exam: See Below Exam Limited By: No Limitations General Appearance: Alert, WD/WN, No Apparent Distress Eyes: Bilateral: Normal Appearance, EOMI Ears: Normal External Exam, Normal Canal, Hearing Grossly Normal, Normal TMs Nose: Normal Inspection, Normal Mucosa, No Blood Throat/Mouth: Normal Inspection, Normal Lips, Normal Teeth, Normal Gums, Normal Oropharynx, Normal Voice, No Airway Compromise Head: Atraumatic, Normocephalic Neck: Normal Inspection, Supple, Non-Tender, Full Range of Motion Respiratory/Chest: No Respiratory Distress, Lungs Clear, Normal Breath Sounds, No Accessory Muscle Use, Chest Non-Tender Cardiovascular: Normal Peripheral Pulses, Regular Rate, Rhythm, No Edema, No Gallop, No JVD, No Murmur, No Rub GI/Abdominal Exam: Normal Bowel Sounds, Soft, No Organomegaly, No Distention, No Abnormal Bruit, No Mass, Pelvis Stable, Tender (Generalized abd pain. No rebound tenderness) (Female) Exam: Deferred Rectal (Female) Exam: Normal Exam, Normal Rectal Tone Back Exam: Normal Inspection, Full Range of Motion, NT Extremities: Normal Inspection, Normal Range of Motion, Non-Tender, Normal Capillary Refill, No Pedal Edema Neurological: Alert, Oriented, CN II-XII Intact, Normal Cognition, Normal Gait, Normal Reflexes, No Motor/Sensory Deficits Psychiatric: Normal Affect, Normal Mood Skin Exam: Warm, Dry, Intact, Normal Color, No Rash Lymphatic: No Adenopathy Course - Vital Signs Last Recorded V/S: Last Vital Signs Temp 99.5 F 07/29/17 17:44 Pulse 89 07/29/17 17:44 Resp 18 07/29/17 17:44 BP 152/93 H 07/29/17 17:44 Pulse Ox 100 07/29/17 17:44 - Orders/Labs/Meds Orders: Active Orders 24 hr Category Date Time Status Enema [RC] ASDIRECTED Care 07/29/17 18:15 Active Labs: Laboratory Tests 07/29/17 07/29/17 07/29/17 Range/Units 17:47 18:11 18:11 WBC 8.4 (5.0-10.0) 10^3/uL RBC 4.17 L (4.2-5.4) 10^6/uL Hgb 12.1 (12.0-16.0) g/dL Hct 37.4 (37.0-47.0) % MCV 89.7 (80-100) fL MCH 29.0 (27.0-34.0) pg MCHC 32.4 L (33.0-35.0) g/dL Plt Count 246 (150-450) 10^3/uL Neut % (Auto) 39.6 L (42.2-75.2) % Lymph % (Auto) 47.7 (20.5-50.1) % [place] % (Auto) 8.7 H (2-8) % Eos % (Auto) 3.8 H (1.0-3.0) % Baso % (Auto) 0.2 (0.0-1.0) % Sodium 138 (135-145) mmol/L Potassium 4.0 (3.6-5.0) mmol/L Chloride 108 (101-111) mmol/L Carbon Dioxide 24.0 (21.0-31.0) mmol/L Anion Gap 10.0 BUN 15 (7-18) mg/dL Creatinine 0.8 (0.6-1.3) mg/dL Est Cr Clr Drug Dosing 99.25 mL/min Estimated GFR (MDRD) > 60 BUN/Creatinine Ratio 18.75 Glucose 81 (74-105) mg/dL Calcium 8.9 (8.4-10.2) mg/dl Total Bilirubin 0.4 (0.2-1.0) mg/dL AST 20 (10-42) IU/L ALT 61 H (10-60) IU/L Alkaline Phosphatase 113 (42-121) IU/L Total Protein 6.5 L (6.7-8.2) g/dl Albumin 3.7 (3.2-5.5) g/dl Globulin 2.8 Albumin/Globulin Ratio 1.32 Urine Color Yellow (YELLOW) Urine Appearance Slightly cloudy (CLEAR) Urine pH 5.0 (5.0-9.0) Ur Specific [place] 1.025 (1.005-1.030) Urine Protein Negative (NEGATIVE) Urine Glucose (UA) Negative (NEGATIVE) Urine Ketones Negative (NEGATIVE) Urine Occult Blood Negative (NEGATIVE) Urine Nitrite Negative (NEGATIVE) Urine Bilirubin Negative (NEGATIVE) Urine Urobilinogen 0.2 (0.2-1.0) mg/dL Ur Leukocyte Esterase Negative (NEGATIVE) Urine RBC 0-5 /HPF Urine WBC 0-5 (0-5/HPF) /HPF Ur Epithelial Cells Few /HPF Amorphous Sediment Rare (0/HPF) /HPF Urine Bacteria Few (0-FEW/HPF) /HPF Urine Mucus Rare /LPF - Re-Assessments/Exams Free Text/Narrative Re-Assessment/Exam: 07/29/17 18:34 Xray of Abd: Mild obstipation. See rad report. Patient sent for a soap suds enema. Departure - Departure Disposition: Home, Self-Care 01 Clinical Impression: Obstipation - Discharge Information Instructions: Constipation, Adult, [id number] Forms: ED Department Discharge Additional Instructions: increase fluids, fruit and fiber in diet miralax one capful daily in at least 8 ounces of liquid follow up in clinic if recurring issues with constipation <Tammi Rogers - Last Filed: 07/29/17 19:41> Departure - Departure Time of Disposition: 19:38 Condition: Good
[2017-07-29 17:52] VITALS: BP 152/93
[2017-07-29 18:36] LABS: CHLORIDE,CL 108 mmol/L (101-111); SODIUM,NA 138 mmol/L (135-145)
== END 2017-07-29 19:45 | disposition home or self-care (01) ==
LOC: DL.ED 17:30
DX: K59.00 Constipation, unspecified (principal); J45.909 Unspecified asthma, uncomplicated; F17.210 Nicotine dependence, cigarettes, uncomplicated; Z88.5 Allergy status to narcotic agent; Z79.899 Other long term (current) drug therapy
CPT/HCPCS: 36415; 74019; 80053; 81001; 85025; 99284

== ENCOUNTER 2017-09-22 14:57 | Emergency (ER) | payer MEDICAID ==
[2017-09-22] MEDS ORDERED: Ondansetron 4 MG Tab.DIS PO ONE (14:58)
[2017-09-22] MEDS ORDERED: metroNIDAZOLE 250 MG Tab PO ONE (14:58)
[2017-09-22] MEDS ORDERED: LIDOCAINE 1% IM ONE ×2 (14:58)
[2017-09-22] MEDS ORDERED: Azithromycin 250 MG Tab PO ONE (14:58)
[2017-09-22] MEDS ORDERED: CEFTRIAXONE 250 MG IM ONE ×2 (14:58)
[2017-09-22] MEDS ORDERED: Ondansetron 4 MG Tab.DIS ONE (16:20)
[2017-09-22] MEDS ORDERED: Azithromycin 250 MG Tab ONE (16:20)
[2017-09-22] MEDS ORDERED: metroNIDAZOLE 250 MG Tab ONE (16:20)
[2017-09-22] MEDS ORDERED: cefTRIAXone 250 MG Vial ONE (16:21)
[2017-09-22] MEDS ORDERED: Lidocaine 1% 30 ML SDV ONE (16:22)
== END 2017-09-22 17:37 | disposition home or self-care (01) ==
LOC: DL.ED 14:57
DX: N39.0 Urinary tract infection, site not specified (principal); Z20.2 Contact with and (suspected) exposure to infections with a predominantly sexual mode of transmission; Z91.040 Latex allergy status; Z88.8 Allergy status to other drugs, medicaments and biological substances
CPT/HCPCS: 36415; 81001; 85025; 87491; 87591; 96372; 99283; A9270-GY; J0696

== ENCOUNTER 2017-10-12 17:24 | Emergency (ER) | payer MEDICAID ==
[2017-10-12] MEDS ORDERED: Albuterol 6.7 GM Inhaler INH ONE ×2 (17:25→20:12)
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
[2017-10-12 20:21] VITALS: BP 113/48
== END 2017-10-12 20:22 | disposition home or self-care (01) ==
LOC: DL.ED 17:24
DX: J45.901 Unspecified asthma with (acute) exacerbation (principal); F17.210 Nicotine dependence, cigarettes, uncomplicated; Z88.5 Allergy status to narcotic agent; Z79.899 Other long term (current) drug therapy
CPT/HCPCS: 99284; A9270

== ENCOUNTER 2017-11-09 17:39 | Emergency (ER) | payer MEDICAID ==
[2017-11-09 17:55] VITALS: BP 109/70
[2017-11-09] MEDS ORDERED: Erythromycin Base 0.5% Ophth Oint 1 GM Tube EYEBOTH ONE (18:00)
[2017-11-09] MEDS ORDERED: Ciprofloxacin 0.3% Ophth Soln 5 ML Bottle OP ONE (18:20)
[2017-11-09] MEDS ORDERED: Polymyxin B/Trimethoprim 10 ML Bottle ONE (18:27)
--- NOTE | 2017-11-09 18:30 | EDM.PDOC ---
Scribed by Stacey Smith 11/09/17 0646 for Meenu Kc NP ED HPI GENERAL MEDICAL PROBLEM - General Chief Complaint: Eye Problems Stated Complaint: EYE PROBLEM [id number] Time Seen by Provider: 11/09/17 17:55 Source of Information: Reports: Patient, RN, RN Notes Reviewed History Limitations: Reports: No Limitations - History of Present Illness INITIAL COMMENTS - FREE TEXT/NARRATIVE: Patient presents to ER with complaint of itching,redness,drainage (green)from both eyes. This began last night. It began with both eyes. Denies sinus congestion or runny nose. She has had chills, nausea, vomiting, headache and slight non-productive cough. No fever or diarrhea. She has used a warm wash cloth. Onset Date: 11/08/17 Location: Reports: Other (eyes) Quality: Reports: Ache Severity: Mild Improves with: Reports: None Worsens with: Reports: None Associated Symptoms: Reports: No Other Symptoms - Related Data Allergies Allergy/AdvReac Type Severity Reaction Status Date / Time hydrocodone [From [place]] Allergy Intermediate Rash Verified 11/09/17 17:51 Home Meds: Home Meds Acetaminophen 650 mg PO Q6H PRN 09/03/16 [History] Albuterol [IJD: Ventolin HFA] 2 puff INH Q4HR PRN #1 inhaler 09/16/16 [Rx] ClonazePAM [KlonoPIN] 20 mg PO DAILY 06/05/17 [History] cloNIDine [Catapres-TTS 1] 0.1 mg PO BID 06/05/17 [History] Lidocaine 2% [Xylocaine 2% Jelly] 1 applic TOP Q4HR PRN 07/29/17 [History] Past Medical History Cardiovascular History: Reports: None Respiratory History: Reports: Asthma Gastrointestinal History: Reports: Cholelithiasis, GERD Genitourinary History: Reports: UTI, Recurrent 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 BV - Past Surgical History HEENT Surgical History: Reports: Adenoidectomy, Tonsillectomy Respiratory Surgical History: Reports: None GI Surgical History: Reports: Cholecystectomy Other Female Surgeries/Procedures: 07/26/2017 LMP unknown Neurological Surgical History: Reports: None Musculoskeletal Surgical History: Reports: Other (See Below) Other Musculoskeletal Surgeries/Procedures:: Right knee surgery, left knee surgery x2 Social & Family History - Family History Family Medical History: Noncontributory HEENT: Reports: None Cardiac: Reports: None Respiratory: Reports: Asthma GI: Reports: None : Reports: None OBGYN: Reports: None Musculoskeletal: Reports: None Neurological: Reports: CVA Psychiatric: Reports: None Endocrine/Metabolic: Reports: Diabetes, type II, Hypothyroidism Hematologic: Reports: None Immunologic: Reports: None Dermatologic: Reports: Eczema, Psoriasis Oncologic: Reports: Other (See Below) Other Oncologic Family History: Pt unsure - Tobacco Use Smoking Status *Q: Current Every Day Smoker Years of Tobacco use: 7 Packs/Tins Daily: 0.5 - Caffeine Use Caffeine Use: Reports: Coffee Other Caffeine Use: occasional use - Recreational Drug Use Recreational Drug Use: No - Living Situation & Occupation Living situation: Reports: Single Occupation: Unemployed ED ROS GENERAL - Review of Systems Review Of Systems: ROS reveals no pertinent complaints other than HPI. ED EXAM GENERAL W FULL EYE - Physical Exam Exam: See Below Exam Limited By: No Limitations General Appearance: Alert, WD/WN, No Apparent Distress Eye Exam: Bilateral Eye: Conjunctival Injection (erythema.Green drainage bilateral) Ears: Normal External Exam, Normal Canal, Hearing Grossly Normal, Normal TMs Nose: Normal Inspection, Normal Mucosa, No Blood Throat/Mouth: Normal Inspection, Normal Lips, Normal Teeth, Normal Gums, Normal Oropharynx, Normal Voice, No Airway Compromise Head: Atraumatic, Normocephalic Neck: Normal Inspection, Supple, Non-Tender, Full Range of Motion Respiratory/Chest: No Respiratory Distress, Lungs Clear, Normal Breath Sounds, No Accessory Muscle Use, Chest Non-Tender Cardiovascular: Normal Peripheral Pulses, Regular Rate, Rhythm, No Edema, No Gallop, No JVD, No Murmur, No Rub GI/Abdominal: Normal Bowel Sounds, Soft, Non-Tender, No Organomegaly, No Distention, No Abnormal Bruit, No Mass (Female) Exam: Deferred Rectal (Males) Exam: Deferred Back Exam: Normal Inspection, Full Range of Motion, NT Extremities: Normal Inspection, Normal Range of Motion, Non-Tender, Normal Capillary Refill, No Pedal Edema Neurological: Alert, Oriented, CN II-XII Intact, Normal Cognition, Normal Gait, Normal Reflexes, No Motor/Sensory Deficits Psychiatric: Normal Affect, Normal Mood Skin Exam: Warm, Dry, Intact, Normal Color, No Rash Lymphatic: No Adenopathy Course - Vital Signs Last Recorded V/S: Last Vital Signs Temp 98.9 F 11/09/17 17:45 Pulse 90 11/09/17 17:45 Resp 14 11/09/17 17:45 BP 109/70 11/09/17 17:45 Pulse Ox 99 11/09/17 17:45 - Orders/Labs/Meds Orders: Active Orders 24 hr Category Date Time Status Bacitracin/Polymyxin B [Polysporin Ophth Oint] Med 11/09/17 21:00 Active 1 gm EYEBOTH TID Medication Orders Bacitracin/Polymyxin B Sulfate (Polysporin Ophth Oint) 1 gm EYEBOTH TID YEN Meds: Medications Generic Name Dose Route Start Last Admin Trade Name Freq PRN Reason Stop Dose Admin Bacitracin/Polymyxin B Sulfate 1 gm 11/09/17 21:00 Polysporin Ophth Oint EYEBOTH TID YEN Discontinued Medications Generic Name Dose Route Start Last Admin Trade Name Freq PRN Reason Stop Dose Admin Ciprofloxacin 1 ml 11/09/17 18:20 Ciprofloxacin 0.3% Ophth Soln OP 11/09/17 18:21 ONETIME ONE Erythromycin 1 gm 11/09/17 18:00 Erythromycin 0.5% Ophth Oint EYEBOTH 11/09/17 18:01 ONETIME ONE Polymyxin/Trimethoprim Sulfate Confirm 11/09/17 18:27 Polytrim Ophth Soln Administered 11/09/17 18:28 Dose 10 ml .ROUTE .STK-MED ONE Departure - Departure Time of Disposition: 18:23 Disposition: Home, Self-Care 01 Condition: Fair Clinical Impression: Conjunctivitis Qualifiers: Conjunctivitis type: acute Acute conjunctivitis type: bacterial Laterality: bilateral Qualified Code(s): H10.33 - Unspecified acute conjunctivitis, bilateral - Discharge Information Instructions: Bacterial Conjunctivitis, [id number] Forms: ED Department Discharge Additional Instructions: RX: Antibiotic Eye drops as directed Follow up with your primary care facility - My Orders Last 24 Hours: My Active Orders 11/09/17 21:00 Bacitracin/Polymyxin B [Polysporin Ophth Oint] 1 gm EYEBOTH TID - Assessment/Plan Last 24 Hours: My Active Orders 11/09/17 21:00 Bacitracin/Polymyxin B [Polysporin Ophth Oint] 1 gm EYEBOTH TID I have read and agree with the documentation that has been completed regarding this visit. By signing this record, I attest that the documentation was completed in my physical presence and is an accurate record of the encounter.
[2017-11-09] MEDS ORDERED: Bacitracin/Polymyxin B Ophth Oint 3.5 GM Tube EYEBOTH SCH (21:00)
== END 2017-11-09 18:38 | disposition home or self-care (01) ==
LOC: DL.ED 17:39
DX: H10.33 Unspecified acute conjunctivitis, bilateral (principal); E11.9 Type 2 diabetes mellitus without complications; F17.210 Nicotine dependence, cigarettes, uncomplicated; Z88.5 Allergy status to narcotic agent; Z79.899 Other long term (current) drug therapy
CPT/HCPCS: 99283; A9270

== ENCOUNTER 2022-06-18 00:18 | Inpatient (IN) | payer MEDICAID ==
[2022-06-18] MEDS ORDERED: Lidocaine 1% 30 ML SDV INJECT PRN (08:45)
[2022-06-18] MEDS ORDERED: Methylergonovine 0.2 MG/1 ML Amp IM PRN (08:45)
[2022-06-18] MEDS ORDERED: Misoprostol 400 MCG (4 X 100 MCG TAB) RECTAL PRN (08:45)
[2022-06-18] MEDS ORDERED: Carboprost Tromethamine 250 MCG/1 ML Amp IM PRN (08:45)
[2022-06-18] MEDS ORDERED: Tranexamic Acid 1,000 MG in Sodium Chloride 0.9% 100 ML IV PRN (08:45)
[2022-06-18] MEDS ORDERED: Sodium Chloride 0.9% 10 ML Syringe FLUSH PRN (08:45)
[2022-06-18] MEDS ORDERED: Ondansetron 4 MG/2 ML SDV IVPUSH PRN ×2 (08:45→21:12)
[2022-06-18] MEDS ORDERED: Acetaminophen 325 MG Tab PO PRN (08:45)
[2022-06-18] MEDS ORDERED: Nalbuphine 20 MG/1 ML Amp IM PRN (08:52)
[2022-06-18] MEDS ORDERED: fentaNYL 100 MCG/2 ML SDV IVPUSH PRN (08:52)
[2022-06-18] MEDS ORDERED: Lactated Ringers 1,000 ML IV ONE (09:45)
[2022-06-18] MEDS ORDERED: Misoprostol 50 MCG (1/2 of 100 MCG) Tab VAG ONE (09:45)
[2022-06-18] MEDS ORDERED: Penicillin G Potassium 5 MILLUNITS in Sodium Chloride 0.9% 100 ML IV ONE (09:45)
[2022-06-18] MEDS: Lactated Ringers 1,000 ML IV SCH ×4 (10:32→21:58)
[2022-06-18] MEDS ORDERED: Misoprostol 25 MCG (1/4 of 100 MCG) Tab VAG PRN (14:15)
[2022-06-18] MEDS: Penicillin G Potassium 3 MILLUNITS in Sodium Chloride 0.9% 100 ML IV SCH ×3 (14:26→21:58)
[2022-06-18] MEDS: Oxytocin/Normal Saline 30 UNIT/500 ML BAG IV SCH (15:49)
[2022-06-18] MEDS ORDERED: EPINEPHrine 1 MG/ML SDV ONE (20:11)
[2022-06-18] MEDS ORDERED: Dexmedetomidine 200 MCG/2 ML SDV ONE (20:11)
[2022-06-18] MEDS ORDERED: Promethazine 25 MG/ML SDV IM PRN (21:12)
[2022-06-18] MEDS ORDERED: ePHEDrine 50 MG/ML SDV IVPUSH PRN (21:12)
[2022-06-18] MEDS ORDERED: Naloxone 2 MG/2 ML Syringe IVPUSH PRN (21:12)
[2022-06-18] MEDS ORDERED: Phenylephrine 1% 10 MG/ML SDV IVPUSH PRN (21:13)
[2022-06-18] MEDS ORDERED: Lactated Ringers 500 ML IV SCH ×2 (21:15)
[2022-06-19] MEDS ORDERED: Morphine PF 10 MG/10 ML SDV IT ONE (00:01)
[2022-06-19] MEDS ORDERED: EPINEPHrine 1 MG/ML SDV ONE (00:01)
[2022-06-19] MEDS ORDERED: Sodium Bicarbonate 4.2% 2.5 MEQ/5 ML SDV ONE (00:01)
[2022-06-19] MEDS ORDERED: Sodium Chloride 0.9% 20 ML SDV ONE (00:01)
[2022-06-19] MEDS ORDERED: Dexmedetomidine 200 MCG/2 ML SDV IT ONE (00:01)
[2022-06-19] MEDS ORDERED: Acetaminophen 325 MG Tab PO PRN (00:53)
[2022-06-19] MEDS ORDERED: Benzocaine/Menthol 20%-0.5% Spray 78 GM Cannister TOP PRN (00:53)
[2022-06-19] MEDS ORDERED: Oxytocin 10 Units/1 ML SDV IM PRN (00:53)
[2022-06-19] MEDS ORDERED: Simethicone 80 MG Tab.Chew PO PRN (00:53)
[2022-06-19] MEDS: Oxytocin/Normal Saline 30 UNIT/500 ML BAG IV SCH (01:23)
[2022-06-19] MEDS: Ibuprofen 800 MG Tab PO PRN ×2 (08:10→20:23)
[2022-06-19] MEDS: Prenatal Multivitamin with Calcium/Folic Acid/Iron Tab PO SCH (08:10)
[2022-06-19] MEDS: Docusate Sodium 100 MG Cap PO PRN (20:23)
[2022-06-19 21:54] VITALS: BP 117/65; PULSE 75
[2022-06-20] MEDS: Ibuprofen 800 MG Tab PO PRN (05:37)
[2022-06-20] MEDS: Docusate Sodium 100 MG Cap PO PRN (11:32)
[2022-06-20] MEDS: Prenatal Multivitamin with Calcium/Folic Acid/Iron Tab PO SCH (11:32)
== END 2022-06-20 13:48 | disposition home or self-care (01) | DRG 807 ==
LOC: DL.OB 00:18 → OBSVTOIN 06-19 00:18
PROVIDERS: ADMIT Family Medicine; ATTEND Family Medicine
PROC: 10E0XZZ Delivery of Products of Conception, External Approach (ICD-10-PCS; principal; 2022-06-19)
PROC: 10907ZC Drainage of Amniotic Fluid, Therapeutic from Products of Conception, Via Natural or Artificial Opening (ICD-10-PCS; 2022-06-19)
PROC: 3E033VJ Introduction of Other Hormone into Peripheral Vein, Percutaneous Approach (ICD-10-PCS; 2022-06-19)
DX: O99.824 Streptococcus B carrier state complicating childbirth (principal); Z37.0 Single live birth; Z3A.39 39 weeks gestation of pregnancy; O72.1 Other immediate postpartum hemorrhage; O72.0 Third-stage hemorrhage; O99.02 Anemia complicating childbirth; Z20.822 Contact with and (suspected) exposure to COVID-19; O99.344 Other mental disorders complicating childbirth; F41.8 Other specified anxiety disorders; O99.284 Endocrine, nutritional and metabolic diseases complicating childbirth; E03.9 Hypothyroidism, unspecified; F32.A Depression, unspecified; F41.9 Anxiety disorder, unspecified; O99.52 Diseases of the respiratory system complicating childbirth; J45.909 Unspecified asthma, uncomplicated; D50.0 Iron deficiency anemia secondary to blood loss (chronic)
CPT/HCPCS: 01967; 36415; 51701; 59025; 59409; 85027; 86592; A9270-GY; J0171; J2210; J2270; J2300; J2405; J2540; J2590; J3010; J3490; J7050; J7120; U0002

== ENCOUNTER 2023-01-11 14:00 | Emergency (ER) | payer MEDICAID | END 2023-01-11 14:27 | disposition left against medical advice (07) | LOC: DL.ED 14:00 | DX: Z53.21 Procedure and treatment not carried out due to patient leaving prior to being seen by health care provider (principal) ==